=== PATIENT | female | born 1990 | race African-American/Black ===

== ENCOUNTER 2016-06-16 10:50 | Inpatient (IN) | payer MEDICAID ==
[~2016-06-16] VITALS: Ht 152.4 cm; Wt 58.1 kg
[~2016-06-16 10:50] MED LIST: AMOXICILLIN500 MG ORAL; BACTRIM-DS1 EA ORAL; IBUPROFEN600 MG ORAL; KEFLEX500 MG ORAL; NKM; NORCO 5-325 TA1 EACH ORAL; VALIUM5 MG ORAL
[2016-06-16] MEDS ORDERED: Acetaminophen 500mg (ES) tab ORAL ONE (11:15)
[2016-06-16 12:32] LABS: BASOPHILS % (AUTO) 0.3 % (0.0-2.0); EOSINOPHILS % (AUTO) 0.2 % (0.0-3.0); LYMPHOCYTES % (AUTO) 15.9 % (20.0-45.0); MEAN CORPUSCULAR HEMOGLOBIN 26.9 PG (27.0-31.0); MEAN CORPUSCULAR HGB CONC 31.4 G/DL (32.0-36.0); MEAN CORPUSCULAR VOLUME 86 FL (80-99); MONOCYTES % (AUTO) 12.2 % (1.0-10.0); NEUTROPHILS % (AUTO) 71.5 % (45.0-75.0); PLATELET COUNT 252 K/UL (150-450); RED BLOOD COUNT 4.61 M/UL (4.20-5.40); RED CELL DISTRIBUTION WIDTH 11.3 % (11.6-14.8); WHITE BLOOD COUNT 7.9 K/UL (4.8-10.8)
[2016-06-16 12:35] LABS: ALANINE AMINOTRANSFERASE 7 U/L (3-33); ALBUMIN/GLOBULIN RATIO 0.9 (1.0-2.7); ANION GAP 16 (5-15); ASPARTATE AMINO TRANSFERASE 18 U/L (5-40); CALCIUM 9.4 mg/dL (8.6-10.2); CARBON DIOXIDE 25 mEQ/L (20-30); CHLORIDE 95 mEQ/L (98-107); CREATININE 0.9 mg/dL (0.5-0.9); GLOMERULAR FILTRATION RATE > 60 mL/min (>60); HEMOLYSIS 7; POTASSIUM 4.1 mEQ/L (3.4-4.9); SODIUM 136 mEQ/L (135-145); TOTAL PROTEIN 8.3 g/dL (6.6-8.7)
[2016-06-16 13:20] VITALS: BP 109/70
[2016-06-16] MEDS ORDERED: Clindamycin 900mg 50 ML IVPB ONE (15:00)
[2016-06-16 15:42] VITALS: BP 112/74
--- NOTE | 2016-06-16 15:58 | Emergency Room Report ---
History of Present Illness General Chief Complaint: Flu Like Symptoms Source: Patient Present Illness HPI This patient states that for the past few days she has had a sore throat that has become worse on the left side. She states that she also has left-sided neck pain. She states over the past day her left ear has also begun hurting. She also is fatigued and has generalized bodyaches. She denies nausea or vomiting. She denies chest pain or shortness of breath. She denies cough. She has no other complaints. Allergies: Coded Allergies: No Known Allergies (Verified , 09/08/11) Patient History Past Medical History: none Past Surgical History: none Social History: Denies: alcohol use, drug use, smoking Last Menstrual Period: 05/24/16 Now: No : 0 Para: 0 Reviewed Nursing Documentation: PMH: Agreed, PSxH: Agreed Nursing Documentation-PMH Past Medical History: No Stated History Review of Systems All Other Systems: negative except mentioned in HPI Physical Exam Vital Signs Date Time Temp Pulse Resp B/P Pulse Ox O2 Delivery O2 Flow Rate FiO2 06/16/16 10:55 99.1 82 20 114/79 100 Room Air Sp02 EP Interpretation: reviewed, normal General Appearance: no apparent distress, alert, GCS 15, non-toxic Head: normocephalic, atraumatic Eyes: bilateral eye PERRL, bilateral eye normal inspection ENT: hearing grossly normal, no angioedema, normal voice, uvula midline, tonsillar swelling - L. tonsillar enlargement and erythema., other - +purulent fluid behind L. TM Neck: full range of motion, no meningismus, supple/symm/no masses Respiratory: chest non-tender, lungs clear, normal breath sounds, speaking full sentences Cardiovascular #1: regular rate, rhythm, no edema Gastrointestinal: normal bowel sounds, non tender, soft, non-distended, no guarding, no rebound Rectal: deferred Musculoskeletal: back normal, gait/station normal, normal range of motion, non- tender Neurologic: alert, oriented x3, responsive, motor strength/tone normal, sensory intact, speech normal Psychiatric: judgement/insight normal, memory normal, mood/affect normal, no suicidal/homicidal ideation Skin: normal color, no rash, warm/dry, well hydrated Medical Decision Making Diagnostic Impression: Primary Impression: Cellulitis of tonsil ER Course Patient has swelling and cellulitis of the left tonsil. Because of the significant swelling in the left sided neck pain, I felt I should obtain a CT of the peritonsillar area and neck to rule out abscess. CT showed swelling of the tonsil and some peritonsillar phlegmon formation. No discrete abscess. However, in this is concerning that this could progress quickly into the peritonsillar abscess. Therefore, I feel I should admit this patient for IV antibiotics. Patient was also given clindamycin IV here in the emergency department. She will be admitted for further evaluation and treatment. Labs Test 06/16/16 11:43 06/16/16 11:54 Urine HCG, Qualitative Negative White Blood Count 7.9 K/UL (4.8-10.8) Red Blood Count 4.61 M/UL (4.20-5.40) Hemoglobin 12.4 G/DL (12.0-16.0) Hematocrit 39.4 % (37.0-47.0) Mean Corpuscular Volume 86 FL (80-99) Mean Corpuscular Hemoglobin 26.9 PG (27.0-31.0) Mean Corpuscular Hemoglobin Concent 31.4 G/DL (32.0-36.0) Red Cell Distribution Width 11.3 % (11.6-14.8) Platelet Count 252 K/UL (150-450) Mean Platelet Volume 8.0 FL (6.5-10.1) Neutrophils (%) (Auto) 71.5 % (45.0-75.0) Lymphocytes (%) (Auto) 15.9 % (20.0-45.0) Monocytes (%) (Auto) 12.2 % (1.0-10.0) Eosinophils (%) (Auto) 0.2 % (0.0-3.0) Basophils (%) (Auto) 0.3 % (0.0-2.0) Sodium Level 136 mEQ/L (135-145) Potassium Level 4.1 mEQ/L (3.4-4.9) Chloride Level 95 mEQ/L (98-107) Carbon Dioxide Level 25 mEQ/L (20-30) Anion Gap 16 (5-15) Blood Urea Nitrogen 9 mg/dL (7-23) Creatinine 0.9 mg/dL (0.5-0.9) Estimat Glomerular Filtration Rate > 60 mL/min (>60) Glucose Level 96 mg/dL (74-106) Calcium Level 9.4 mg/dL (8.6-10.2) Total Bilirubin 0.3 mg/dL (0.0-1.2) Aspartate Amino Transf (AST/SGOT) 18 U/L (5-40) Alanine Aminotransferase (ALT/SGPT) 7 U/L (3-33) Alkaline Phosphatase 55 U/L (35-104) Total Protein 8.3 g/dL (6.6-8.7) Albumin 4.1 g/dL (3.5-5.2) Globulin 4.2 g/dL Albumin/Globulin Ratio 0.9 (1.0-2.7) Last Vital Signs Date Time Temp Pulse Resp B/P Pulse Ox O2 Delivery O2 Flow Rate FiO2 06/16/16 15:42 97.8 68 17 112/74 100 Room Air Disposition: ADMITTED INPATIENT Condition: Serious Referrals: NOT CHOSEN LINH/,REFERRING (PCP) AMRITA KILLIAN D.O. Jun 16, 2016 15:58
[2016-06-16 18:17] VITALS: BP 116/71
[2016-06-16 20:03] VITALS: BP 118/69
[2016-06-16] MEDS ORDERED: DuoNeb 0.5-3(2.5)mg/3ml neb HHN PRN (21:45)
[2016-06-16] MEDS ORDERED: Nitroglycerin Subl 0.4mg tab (Bottle Of 25) SL PRN (21:45)
[2016-06-16] MEDS ORDERED: Miralax 17gm pkt ORAL PRN (21:45)
--- NOTE | 2016-06-16 22:17 | Infectious Diseases Prog Note ---
Assessment/Plan Problems: (1) Tonsillar abscess Assessment & Plan: will send screening for strep A , continue vancomycin and cefepime, add flagyl to cover anaerobic bacteria, recommend ENT consult (2) Acute bacterial tonsillitis Assessment & Plan: suspect streptococcus related, will screen for strep A, continue current antibiotics, and add flagyl (3) Sepsis Assessment & Plan: due to the above, blood culture was sent, continue current antibiotics Subjective Allergies: Coded Allergies: No Known Allergies (Verified , 09/08/11) Objective Vital Signs Last 24 Hour Vital Signs Date Time Temp Pulse Resp B/P Pulse Ox O2 Delivery O2 Flow Rate FiO2 06/16/16 20:03 97.7 61 18 118/69 99 Room Air 06/16/16 19:22 97.7 70 19 116/71 100 Room Air 06/16/16 18:17 97.7 70 19 116/71 100 Room Air 06/16/16 15:42 97.8 68 17 112/74 100 Room Air 06/16/16 13:20 97.9 66 18 109/70 100 Room Air 06/16/16 12:47 97.9 06/16/16 11:40 14 Room Air 06/16/16 10:55 99.1 82 20 114/79 100 Room Air Height (Feet): 5 Height (Inches): 0.00 Weight (Pounds): 128 Microbiology Date/Time Source Procedure Growth Status 06/16/16 11:50 Nasal Nares Influenza Types A,B Antigen (QIAN) - Final Complete Laboratory Tests Test 06/16/16 11:43 06/16/16 11:54 Urine HCG, Qualitative Negative White Blood Count 7.9 K/UL (4.8-10.8) Red Blood Count 4.61 M/UL (4.20-5.40) Hemoglobin 12.4 G/DL (12.0-16.0) Hematocrit 39.4 % (37.0-47.0) Mean Corpuscular Volume 86 FL (80-99) Mean Corpuscular Hemoglobin 26.9 PG (27.0-31.0) L Mean Corpuscular Hemoglobin Concent 31.4 G/DL (32.0-36.0) L Red Cell Distribution Width 11.3 % (11.6-14.8) L Platelet Count 252 K/UL (150-450) Mean Platelet Volume 8.0 FL (6.5-10.1) Neutrophils (%) (Auto) 71.5 % (45.0-75.0) Lymphocytes (%) (Auto) 15.9 % (20.0-45.0) L Monocytes (%) (Auto) 12.2 % (1.0-10.0) H Eosinophils (%) (Auto) 0.2 % (0.0-3.0) Basophils (%) (Auto) 0.3 % (0.0-2.0) Sodium Level 136 mEQ/L (135-145) Potassium Level 4.1 mEQ/L (3.4-4.9) Chloride Level 95 mEQ/L (98-107) L Carbon Dioxide Level 25 mEQ/L (20-30) Anion Gap 16 (5-15) H Blood Urea Nitrogen 9 mg/dL (7-23) Creatinine 0.9 mg/dL (0.5-0.9) Estimat Glomerular Filtration Rate > 60 mL/min (>60) Glucose Level 96 mg/dL (74-106) Calcium Level 9.4 mg/dL (8.6-10.2) Total Bilirubin 0.3 mg/dL (0.0-1.2) Aspartate Amino Transf (AST/SGOT) 18 U/L (5-40) Alanine Aminotransferase (ALT/SGPT) 7 U/L (3-33) Alkaline Phosphatase 55 U/L (35-104) Total Protein 8.3 g/dL (6.6-8.7) Albumin 4.1 g/dL (3.5-5.2) Globulin 4.2 g/dL Albumin/Globulin Ratio 0.9 (1.0-2.7) L Current Medications Medications (Trade) Dose Ordered Sig/Prakash Route PRN Reason Start Time Stop Time Status Last Admin Dose Admin Acetaminophen (Tylenol) 650 mg Q4H PRN ORAL fever 06/16/16 21:45 07/16/16 21:44 UNV Albuterol/ Ipratropium 3 ml 3 ml EVERY 4 HOURS PRN HHN Shortness of Breath 06/16/16 21:45 06/21/16 21:44 UNV Cefepime HCl 2 gm/ Dextrose 110 ml @ 220 mls/hr Q12HR@1100,2300 IV 06/16/16 23:00 06/23/16 22:59 Heparin Sodium (Porcine) (Heparin 5000 units/ml) 5,000 units EVERY 12 HOURS SUBQ 06/17/16 23:00 07/17/16 22:59 Morphine Sulfate (Morphine Sulfate) 2 mg EVERY 4 HOURS PRN IVP Moderate Pain (Pain Scale 4-6) 06/16/16 21:45 06/23/16 21:44 UNV Nitroglycerin (Ntg) 0.4 mg Every 5 Minutes PRN SL Prn Chest Pain 06/16/16 21:45 07/16/16 21:44 UNV Ondansetron HCl (Zofran) 4 mg Q6H PRN IVP Nausea & Vomiting 06/16/16 21:45 07/16/16 21:44 UNV Polyethylene Glycol (Miralax) 17 gm DAILYPRN PRN ORAL Constipation 06/16/16 21:45 07/16/16 21:44 UNV Temazepam (Restoril) 15 mg HSPRN PRN ORAL Insomnia 06/16/16 21:45 06/23/16 21:44 UNV Vancomycin HCl/ Dextrose (Vancomycin/D5W) 275 ml @ 183.3 mls/ hr Q24H IV 06/17/16 00:30 06/22/16 00:29 UNV Kyree Otto M.D. Jun 16, 2016 22:17
[2016-06-16] MEDS: Morphine Sulfate 2mg/ml Inj IVP PRN (22:36)
[2016-06-16] MEDS: Cefepime HCl 2 GM in D5W 110 ML IV SCH (22:37)
[2016-06-17] VITALS: BP 105/57
[2016-06-17] MEDS: metroNIDAZOLE 500mg 100 ML IVPB SCH ×4 (00:51→21:31)
[2016-06-17] MEDS: Vancomycin 750 MG in D5W 275 ML IVPB SCH ×2 (01:40→12:38)
[2016-06-17] MEDS: Morphine Sulfate 2mg/ml Inj IVP PRN ×4 (02:10→21:32)
[2016-06-17 04:00] VITALS: BP 97/47
[2016-06-17 07:32] LABS: BASOPHILS % (AUTO) 0.2 % (0.0-2.0); EOSINOPHILS % (AUTO) 0.4 % (0.0-3.0); LYMPHOCYTES % (AUTO) 16.3 % (20.0-45.0); MEAN CORPUSCULAR HEMOGLOBIN 28.7 PG (27.0-31.0); MEAN CORPUSCULAR HGB CONC 33.4 G/DL (32.0-36.0); MEAN CORPUSCULAR VOLUME 86 FL (80-99); MONOCYTES % (AUTO) 9.6 % (1.0-10.0); NEUTROPHILS % (AUTO) 73.5 % (45.0-75.0); PLATELET COUNT 229 K/UL (150-450); RED BLOOD COUNT 4.19 M/UL (4.20-5.40); RED CELL DISTRIBUTION WIDTH 11.3 % (11.6-14.8); WHITE BLOOD COUNT 6.9 K/UL (4.8-10.8)
[2016-06-17 07:47] LABS: ALANINE AMINOTRANSFERASE 6 U/L (3-33); ANION GAP 15 (5-15); ASPARTATE AMINO TRANSFERASE 14 U/L (5-40); CALCIUM 8.9 mg/dL (8.6-10.2); CARBON DIOXIDE 24 mEQ/L (20-30); CHLORIDE 99 mEQ/L (98-107); CREATININE 0.9 mg/dL (0.5-0.9); GLOMERULAR FILTRATION RATE > 60 mL/min (>60); HEMOLYSIS 3; POTASSIUM 3.9 mEQ/L (3.4-4.9); SODIUM 138 mEQ/L (135-145); TOTAL PROTEIN 7.4 g/dL (6.6-8.7)
[2016-06-17 07:50] VITALS: BP 103/57
--- NOTE | 2016-06-17 08:47 | Diagnostic Imaging Report ---
Indication: Left-sided ear pain, painful swallowing Technique: IV administration nonionic contrast. Spiral acquisitions obtained through the neck. Multiplanar reconstructions were generated. Total dose length product 543 mGycm. CTDIvol(s) 8, 32, 17 mGy. Radiation dose was minimized using automated exposure control Comparison: None Findings: There is enlargement of the left tonsil. There is some subtle low-attenuation in the inferior lateral left tonsillar or peritonsillar region which is irregular, measures approximately 13 x 9 mm, does not demonstrate peripheral enhancement. There is a 6 mm area of low attenuation in the left side of the adenoids at the junction with the upper tonsil. This is subtle, ill-defined, and does not represent peripheral enhancement Otherwise, no definite discrete collections with peripheral enhancement are demonstrated to definitely suggest abscess. There is also some swelling of the adenoids and equivocal slight swelling of the right tonsil. No significant prevertebral soft tissue swelling is demonstrated. There is cervical adenopathy, with bilateral jugulodigastric nodes each measuring approximately 2.8 cm long axis dimension. Enlarged posterior triangle nodes measure up to 2.2 cm on the right and 2.5 cm on the left. There are prominent but smaller lymph nodes are also demonstrated bilaterally The isthmus and deep lobe of both parotid glands demonstrates subtle slight low-attenuation, each area measuring approximately 12 mm diameter. Suspect that this is on the basis of been hardening artifact from the adjacent bones and opacified vascular structures. The included maxillary sinuses are clear. The thyroid is unremarkable. The bones are unremarkable. The lung apices are clear. The vascular structures are unremarkable. The visualized posterior fossa structures are unremarkable. Impression: There is left tonsillar, adenoidal, and to a lesser extent right tonsillar soft tissue swelling, presumably a bases of infection/inflammation. Irregular subtle area of low attenuation in the inferior periphery of the left tonsillar region is ill-defined, and does not demonstrate peripheral enhancement. Suspect this represents an area of phlegmon, but early abscess formation not completely excludable. 6 mm low attenuation in the left side of the adenoids at the level of the junction with the tonsils. No rim enhancement. This could be chest on the basis of beam hardening artifact. If real, most likely an area of phlegmon but early abscess formation likewise not completely excludable. Bilateral cervical lymphadenopathy. Given evidence of tonsillar inflammation, most likely represents reactive lymphadenopathy. The CT scanner at [facility] is accredited by the [employer] and the scans are performed using protocols designed to limit radiation exposure to as low as reasonably achievable to attain images of sufficient resolution adequate for diagnostic evaluation.
[2016-06-17 11:24] VITALS: BP 121/75
[2016-06-17] MEDS: Cefepime HCl 2 GM in D5W 110 ML IV SCH ×2 (11:52→22:37)
--- NOTE | 2016-06-17 12:28 | History and Physical Report ---
DATE OF ADMISSION: 06/16/2016 HISTORY OF PRESENT ILLNESS: The patient is admitted for tonsillar and peritonsillar cellulitis, rule out abscess noted for IV antibiotics. The patient complained of throat pain for the couple of days and left ear pain for couple of days as well, body aches, arthralgia, and it was hard to swallow foods and those are the symptoms that she came in for. The patient denies fever or chills. Denies headache. Denies dizziness. PAST MEDICAL HISTORY: None. PAST SURGICAL HISTORY: None. MEDICATIONS: None. ALLERGIES: None. SOCIAL HISTORY: Denies history of smoking, alcohol, or illicit drugs. FAMILY HISTORY: Noncontributory. REVIEW OF SYSTEMS: HEENT: Denies headaches. Respiratory: Denies shortness of breath. Denies cough. Cardiovascular: Denies chest pain. Gastrointestinal: Denies nausea, vomiting, or diarrhea. She does have throat pain. She does have swallowing problem and left ear pain. Central Nervous System: No change in vision. . PHYSICAL EXAMINATION: VITAL SIGNS: Temperature is 97.7 degrees, pulse of 70, blood pressure 116/79. HEENT: PERRLA. NECK: Supple. No lymphadenopathy. CHEST: Clear to auscultation. There might be an abscess, it is hard to visualize along the tonsillar area. We will refer this to ENT. CARDIOVASCULAR: Regular rate and rhythm. No murmurs, rubs, or gallops. GASTROINTESTINAL: Soft, nontender, and nondistended. No organomegaly. EXTREMITIES: No edema. . NEUROLOGIC: Reflexes are equal on both sides. Moves all four extremities. LABORATORY DATA: WBC of 7.9, hemoglobin 12.9, and platelets 252,000. Sodium 133, potassium, 4.1, BUN of 9, creatinine 0.9, glucose of 96. ASSESSMENT AND PLAN: 1. Possible peritonsillar cellulitis, rule out abscess. 2. Infectious disease Dr. Adams, Dr. Otto, Dr. Dr. Garcia, and Dr. Huang have been consulted for the above-mentioned diagnoses and treatment. The patient also was complained of shortness of breath. Diandra Samson M.D. DR: ERI JOB#: [id number] CC:
--- NOTE | 2016-06-17 12:57 | Diagnostic Imaging Report ---
Indication: DYSPNEA Technique: Single portable AP view of the chest. Findings: Comparison: None. The bones and extra pulmonary soft tissues, cardiomediastinal silhouette, pulmonary vasculature and parenchyma, and pleural surfaces are unremarkable. IMPRESSION: Negative portable AP chest.
--- NOTE | 2016-06-17 15:48 | Consultation ---
History of Present Illness General Date patient seen: Jun 17, 2016 Chief Complaint: Flu Like Symptoms Reason for Consultation: inpatient management Present Illness HPI 25 year old female presented to ER with CC of sore throat that has become worse on the left side. She states that she also has left-sided neck pain. She states over the past day her left ear has also begun hurting. she had a CT of her neck showing peritonsilar abscess. Allergies: Coded Allergies: No Known Allergies (Verified , 09/08/11) Medication History Scheduled No Known Medications* (NKM - No Known Medications*), 0 ., (Reported) Discontinued Medications Amoxicillin* (Amoxil*), 500 MG ORAL THREE TIMES A DAY Discontinued Reason: Therapy completed Cephalexin* (Keflex*), 500 MG ORAL EVERY 6 HOURS Discontinued Reason: Therapy completed Diazepam* (Valium*), 5 MG ORAL TID PRN for spasm Discontinued Reason: Therapy completed Hydrocodone Bit/Acetaminophen 5-325* ([employer] 5-325*), 1 TAB ORAL Q4H PRN for For Pain Discontinued Reason: Therapy completed Ibuprofen* (Motrin*), 600 MG ORAL Q8H PRN for For Pain Discontinued Reason: Therapy completed Trimethoprim/Sulfamethoxazole (Bactrim Ds Tablet), 1 TAB ORAL TWICE A DAY Discontinued Reason: Therapy completed Patient History Healthcare decision maker patient Resuscitation status Advanced Directive on File Review of Systems Constitutional: Reports: fever, malaise Physical Exam Lines, tubes and drains: peripheral HEENT: atraumatic Neck: tenderness, tender lateral Respiratory/Chest: chest wall non-tender, lungs clear Cardiovascular/Chest: normal peripheral pulses, regular rhythm Last 24 Hour Vital Signs Date Time Temp Pulse Resp B/P Pulse Ox O2 Delivery O2 Flow Rate FiO2 06/17/16 11:24 97.9 76 19 121/75 98 Room Air 06/17/16 07:50 97.0 65 19 103/57 100 Room Air 06/17/16 04:00 98.1 58 18 97/47 100 Room Air 06/17/16 00:00 98.1 65 18 105/57 98 Room Air 06/16/16 20:03 97.7 61 18 118/69 99 Room Air 06/16/16 19:22 97.7 70 19 116/71 100 Room Air 06/16/16 18:17 97.7 70 19 116/71 100 Room Air Intake and Output 06/16/16 06/17/16 19:00 07:00 Intake Total 1100 ml 466.6 ml Balance 1100 ml 466.6 ml Intake Oral 100 ml IV Total 1000 ml 466.6 ml # Voids 1 4 Laboratory Tests Test 06/17/16 06:20 White Blood Count 6.9 K/UL (4.8-10.8) Red Blood Count 4.19 M/UL (4.20-5.40) L Hemoglobin 12.0 G/DL (12.0-16.0) Hematocrit 35.9 % (37.0-47.0) L Mean Corpuscular Volume 86 FL (80-99) Mean Corpuscular Hemoglobin 28.7 PG (27.0-31.0) Mean Corpuscular Hemoglobin Concent 33.4 G/DL (32.0-36.0) Red Cell Distribution Width 11.3 % (11.6-14.8) L Platelet Count 229 K/UL (150-450) Mean Platelet Volume 8.0 FL (6.5-10.1) Neutrophils (%) (Auto) 73.5 % (45.0-75.0) Lymphocytes (%) (Auto) 16.3 % (20.0-45.0) L Monocytes (%) (Auto) 9.6 % (1.0-10.0) Eosinophils (%) (Auto) 0.4 % (0.0-3.0) Basophils (%) (Auto) 0.2 % (0.0-2.0) Sodium Level 138 mEQ/L (135-145) Potassium Level 3.9 mEQ/L (3.4-4.9) Chloride Level 99 mEQ/L (98-107) Carbon Dioxide Level 24 mEQ/L (20-30) Anion Gap 15 (5-15) Blood Urea Nitrogen 7 mg/dL (7-23) Creatinine 0.9 mg/dL (0.5-0.9) Estimat Glomerular Filtration Rate > 60 mL/min (>60) Glucose Level 79 mg/dL (74-106) Calcium Level 8.9 mg/dL (8.6-10.2) Total Bilirubin 0.2 mg/dL (0.0-1.2) Aspartate Amino Transf (AST/SGOT) 14 U/L (5-40) Alanine Aminotransferase (ALT/SGPT) 6 U/L (3-33) Alkaline Phosphatase 49 U/L (35-104) Total Protein 7.4 g/dL (6.6-8.7) Albumin 3.8 g/dL (3.5-5.2) Globulin 3.6 g/dL Albumin/Globulin Ratio 1.0 (1.0-2.7) Height (Feet): 5 Height (Inches): 0.00 Weight (Pounds): 128 Medications Current Medications Medications (Trade) Dose Ordered Sig/Prakash Route PRN Reason Start Time Stop Time Status Last Admin Dose Admin Acetaminophen (Tylenol) 650 mg Q4H PRN ORAL fever 06/16/16 21:45 07/16/16 21:44 Albuterol/ Ipratropium 3 ml 3 ml Q4H PRN HHN Shortness of Breath 06/16/16 21:45 06/21/16 21:44 Cefepime HCl 2 gm/ Dextrose 110 ml @ 220 mls/hr Q12HR@1100,2300 IV 06/16/16 23:00 06/23/16 22:59 06/17/16 11:52 Heparin Sodium (Porcine) (Heparin 5000 units/ml) 5,000 units EVERY 12 HOURS SUBQ 06/17/16 23:00 07/17/16 22:59 Metronidazole (Flagyl) 100 ml @ 100 mls/hr Q8HR IVPB 06/16/16 23:00 06/23/16 22:59 06/17/16 14:05 Morphine Sulfate (Morphine Sulfate) 2 mg Q4H PRN IVP Moderate Pain (Pain Scale 4-6) 06/16/16 21:45 06/23/16 21:44 06/17/16 09:01 Nitroglycerin (Ntg) 0.4 mg Q5M PRN SL Prn Chest Pain 06/16/16 21:45 07/16/16 21:44 Ondansetron HCl (Zofran) 4 mg Q6H PRN IVP Nausea & Vomiting 06/16/16 21:45 07/16/16 21:44 Polyethylene Glycol (Miralax) 17 gm DAILYPRN PRN ORAL Constipation 06/16/16 21:45 07/16/16 21:44 Temazepam (Restoril) 15 mg HSPRN PRN ORAL Insomnia 06/16/16 21:45 06/23/16 21:44 Vancomycin HCl 1 ea 1 ea DAILY PRN MISC PRN RX PROTOCOL 06/16/16 22:15 07/16/16 22:14 Vancomycin HCl/ Dextrose (Vancomycin/D5W) 275 ml @ 183.3 mls/ hr Q12H IVPB 06/17/16 00:00 06/22/16 00:00 06/17/16 12:38 Assessment/Plan Problem List: (1) Tonsillar abscess ICD Codes: J36 - Peritonsillar abscess SNOMED: 77798571 (2) Sepsis ICD Codes: A41.9 - Sepsis, unspecified organism SNOMED: 07342578 Assessment/Plan iv antibiotics check cultures check wbc check electrolytes dc home when ok with ID. ANNABELLE [place] Jun 17, 2016 15:48
[2016-06-17 16:00] VITALS: BP 97/62
--- NOTE | 2016-06-17 18:11 | Infectious Diseases Prog Note ---
Assessment/Plan Problems: (1) Tonsillar abscess Assessment & Plan: continue vancomycin, cefepime, and flagyl to cover anaerobic bacteria, recommend ENT consult (2) Acute bacterial tonsillitis Assessment & Plan: suspect streptococcus related, will screen for strep A, continue current antibiotics, and add flagyl (3) Sepsis Assessment & Plan: due to the above, blood culture was sent, continue current antibiotics Subjective Constitutional: Reports: anorexia HEENT: Reports: other - left neck and throat pain with swelling. Allergies: Coded Allergies: No Known Allergies (Verified , 09/08/11) All Systems: reviewed and negative except above Objective Vital Signs Last 24 Hour Vital Signs Date Time Temp Pulse Resp B/P Pulse Ox O2 Delivery O2 Flow Rate FiO2 06/17/16 11:24 97.9 76 19 121/75 98 Room Air 06/17/16 07:50 97.0 65 19 103/57 100 Room Air 06/17/16 04:00 98.1 58 18 97/47 100 Room Air 06/17/16 00:00 98.1 65 18 105/57 98 Room Air 06/16/16 20:03 97.7 61 18 118/69 99 Room Air 06/16/16 19:22 97.7 70 19 116/71 100 Room Air 06/16/16 18:17 97.7 70 19 116/71 100 Room Air Height (Feet): 5 Height (Inches): 0.00 Weight (Pounds): 128 General Appearance: WD/WN, no acute distress HEENT: normocephalic, atraumatic, anicteric, mucous membranes moist, tonsils swollen Respiratory/Chest: chest wall non-tender, lungs clear, normal breath sounds, no respiratory distress, no accessory muscle use Cardiovascular: normal peripheral pulses, normal rate, regular rhythm, no gallop/murmur, no JVD Abdomen: normal bowel sounds, soft, non tender, no organomegaly, non distended , no mass Extremities: no cyanosis, no clubbing Skin: no rash, no lesions, no ulcers Microbiology Date/Time Source Procedure Growth Status 06/16/16 11:50 Nasal Nares Influenza Types A,B Antigen (QIAN) - Final Complete Laboratory Tests Test 06/17/16 06:20 White Blood Count 6.9 K/UL (4.8-10.8) Red Blood Count 4.19 M/UL (4.20-5.40) L Hemoglobin 12.0 G/DL (12.0-16.0) Hematocrit 35.9 % (37.0-47.0) L Mean Corpuscular Volume 86 FL (80-99) Mean Corpuscular Hemoglobin 28.7 PG (27.0-31.0) Mean Corpuscular Hemoglobin Concent 33.4 G/DL (32.0-36.0) Red Cell Distribution Width 11.3 % (11.6-14.8) L Platelet Count 229 K/UL (150-450) Mean Platelet Volume 8.0 FL (6.5-10.1) Neutrophils (%) (Auto) 73.5 % (45.0-75.0) Lymphocytes (%) (Auto) 16.3 % (20.0-45.0) L Monocytes (%) (Auto) 9.6 % (1.0-10.0) Eosinophils (%) (Auto) 0.4 % (0.0-3.0) Basophils (%) (Auto) 0.2 % (0.0-2.0) Sodium Level 138 mEQ/L (135-145) Potassium Level 3.9 mEQ/L (3.4-4.9) Chloride Level 99 mEQ/L (98-107) Carbon Dioxide Level 24 mEQ/L (20-30) Anion Gap 15 (5-15) Blood Urea Nitrogen 7 mg/dL (7-23) Creatinine 0.9 mg/dL (0.5-0.9) Estimat Glomerular Filtration Rate > 60 mL/min (>60) Glucose Level 79 mg/dL (74-106) Calcium Level 8.9 mg/dL (8.6-10.2) Total Bilirubin 0.2 mg/dL (0.0-1.2) Aspartate Amino Transf (AST/SGOT) 14 U/L (5-40) Alanine Aminotransferase (ALT/SGPT) 6 U/L (3-33) Alkaline Phosphatase 49 U/L (35-104) Total Protein 7.4 g/dL (6.6-8.7) Albumin 3.8 g/dL (3.5-5.2) Globulin 3.6 g/dL Albumin/Globulin Ratio 1.0 (1.0-2.7) Current Medications Medications (Trade) Dose Ordered Sig/Prakash Route PRN Reason Start Time Stop Time Status Last Admin Dose Admin Acetaminophen (Tylenol) 650 mg Q4H PRN ORAL fever 06/16/16 21:45 07/16/16 21:44 Albuterol/ Ipratropium 3 ml 3 ml Q4H PRN HHN Shortness of Breath 06/16/16 21:45 06/21/16 21:44 Cefepime HCl 2 gm/ Dextrose 110 ml @ 220 mls/hr Q12HR@1100,2300 IV 06/16/16 23:00 06/23/16 22:59 06/17/16 11:52 Heparin Sodium (Porcine) (Heparin 5000 units/ml) 5,000 units EVERY 12 HOURS SUBQ 06/17/16 23:00 07/17/16 22:59 Metronidazole (Flagyl) 100 ml @ 100 mls/hr Q8HR IVPB 06/16/16 23:00 06/23/16 22:59 06/17/16 14:05 Morphine Sulfate (Morphine Sulfate) 2 mg Q4H PRN IVP Moderate Pain (Pain Scale 4-6) 06/16/16 21:45 06/23/16 21:44 06/17/16 15:52 Nitroglycerin (Ntg) 0.4 mg Q5M PRN SL Prn Chest Pain 06/16/16 21:45 07/16/16 21:44 Ondansetron HCl (Zofran) 4 mg Q6H PRN IVP Nausea & Vomiting 06/16/16 21:45 07/16/16 21:44 Polyethylene Glycol (Miralax) 17 gm DAILYPRN PRN ORAL Constipation 06/16/16 21:45 07/16/16 21:44 Temazepam (Restoril) 15 mg HSPRN PRN ORAL Insomnia 06/16/16 21:45 06/23/16 21:44 Vancomycin HCl 1 ea 1 ea DAILY PRN MISC PRN RX PROTOCOL 06/16/16 22:15 07/16/16 22:14 Vancomycin HCl/ Dextrose (Vancomycin/D5W) 275 ml @ 183.3 mls/ hr Q12H IVPB 06/17/16 00:00 06/22/16 00:00 06/17/16 12:38 Kyree Otto M.D. Jun 17, 2016 18:11
[2016-06-17 20:00] VITALS: BP 100/61
--- NOTE | 2016-06-17 21:28 | Consultation ---
DATE OF CONSULTATION: 06/17/2016 INFECTIOUS DISEASE CONSULTATION CONSULTING PHYSICIAN: Kyree Otto M.D. REFERRING PHYSICIAN: Mazin Betts D.O. REASON FOR CONSULTATION: Left tonsillitis with peritonsillar abscess, recommendation for antibiotic therapy. HISTORY OF PRESENT ILLNESS: The patient is a 25-year-old female, with no significant past medical history, presented to the hospital with worsening left-sided throat pain started on Wednesday. The patient did not have any previous preceding symptoms of upper respiratory infection or flu-like syndrome at all, just started with left sore throat, progressed to the point that she was unable to eat. She felt tenderness on the left side of her neck with lump. She had low-grade fever, but no chills. She also had generalized body ache and fatigue. Denied any recent travel or sick contact. The patient denied any headache or blurry vision. In the emergency room, she had a neck CT scan, which was positive for tonsillar enlargement on the left and peritonsillar phlegmon enhancement, suspicious for early abscess formation. So, she was started on antibiotics and I was consulted by the primary provider for antibiotic treatment and further management. REVIEW OF SYSTEMS: Fourteen points of system review were all negative apart from the one I mentioned above in my history and physical PAST MEDICAL HISTORY: Negative. PAST SURGICAL HISTORY: Negative. ALLERGIES: She has no known drug allergies. MEDICATIONS: The patient was given vancomycin and cefepime in the emergency room. For the rest of her medications, please refer to MAR. FAMILY HISTORY: Negative. SOCIAL HISTORY: She works in an office answering phone. Denies using any drugs, tobacco, or alcohol. LABORATORY DATA: White count 7.9, hemoglobin 12.4, hematocrit 39.4, and platelet count 252,000. BUN of 9 and creatinine of 0.9. Urine HCG negative. MICROBIOLOGY: Influenza screening was negative. IMAGING: Neck CT scan showed left tonsillar, adenoidal, and right tonsillar soft tissue swelling. Irregular subtle area of low attenuation in the inferior periphery of the left tonsillar region is ill-defined, does not demonstrate peripheral enhancement, suspect represents the area of phlegmon, but clearly abscess formation not completely excluded. A 6 mm of lower attenuation on the left side of the adenoids at the level of the junction with the tonsils, no rim enhancement, suspicious for phlegmon too. Chest x-ray showed negative portable AP chest. PHYSICAL EXAMINATION: VITAL SIGNS: Temperature 97.7, pulse 70, respirations 19, blood pressure 116/71, and saturation 100% on room air. GENERAL: A young female, up in bed, awake, alert, comfortable, speaking in full sentences, in no acute distress. HEENT: Normocephalic and atraumatic. Pupils are reactive to light equally. She had left tonsillar enlargement, congested, but no exudate, enlarged towards the midline. Right tonsil looks red, but not enlarged as much as the left tonsil. No oral thrush. NECK: Tender on the left side at the angle of the left lower jaw with lymphadenopathy. CARDIOVASCULAR: Regular rate and rhythm. No murmur or gallop. LUNGS: Clear bilaterally. No wheezing or rhonchi. ABDOMEN: Soft, nontender, and nondistended. Positive bowel sounds. No hepatosplenomegaly. No ascites. EXTREMITIES: No edema or cyanosis. ASSESSMENT AND PLAN: 1. Tonsillar abscess. We will send screening for streptococcus A. continue vancomycin and cefepime empirically for now. We will add Flagyl to cover anaerobes. Recommend ENT consult. 2. Acute bacterial tonsillitis, suspect streptococcus species related. We will screen for streptococcus A. Continue antibiotics. Add Flagyl for anaerobic coverage. 3. Sepsis due to the above. Blood culture was sent. Continue wide-spectrum antibiotic therapy pending culture results. Kyree Otto M.D. DR: BARRINGTON JOB#: [id number] CC:
[2016-06-17] MEDS: Heparin 5000 units/ml inj SUBQ SCH (22:37)
[2016-06-18] VITALS (7 sets, daily range): BP systolic 91–116; BP diastolic 53–70
[2016-06-18] MEDS: Vancomycin 750 MG in D5W 275 ML IVPB SCH (00:40)
[2016-06-18] MEDS: Morphine Sulfate 2mg/ml Inj IVP PRN ×3 (02:12→22:17)
[2016-06-18] MEDS: metroNIDAZOLE 500mg 100 ML IVPB SCH ×3 (05:40→21:52)
[2016-06-18] MEDS: Heparin 5000 units/ml inj SUBQ SCH ×2 (08:38→20:26)
--- NOTE | 2016-06-18 10:44 | General Progress Note ---
Subjective Allergies: Coded Allergies: No Known Allergies (Verified , 09/08/11) Subjective sore throat per dr hewitt pt just continue conservative treatment and abx for now afebrile Objective Last 24 Hour Vital Signs Date Time Temp Pulse Resp B/P Pulse Ox O2 Delivery O2 Flow Rate FiO2 06/18/16 10:28 98.1 59 18 101/69 Room Air 06/18/16 08:48 51 06/18/16 08:06 98.1 49 14 94/53 Room Air 06/18/16 03:29 97.5 53 18 91/57 100 Room Air 06/18/16 00:00 97.7 57 18 106/70 98 Room Air 06/17/16 20:00 98.6 69 16 100/61 100 Room Air 06/17/16 16:00 98.4 70 17 97/62 98 Room Air 06/17/16 11:24 97.9 76 19 121/75 98 Room Air Intake and Output 06/17/16 06/18/16 19:00 07:00 Intake Total 560 ml 180 ml Balance 560 ml 180 ml Intake Oral 560 ml 180 ml # Voids 3 3 Height (Feet): 5 Height (Inches): 0.00 Weight (Pounds): 128 Diandra Samson MD Jun 18, 2016 10:44
[2016-06-18] MEDS: Cefepime HCl 2 GM in D5W 110 ML IV SCH ×2 (11:51→23:01)
--- NOTE | 2016-06-18 12:47 | Consultation ---
DATE OF CONSULTATION: 06/18/2016 HEAD AND NECK SURGERY/ENT CONSULTATION CONSULTING PHYSICIAN: Haseeb Moore M.D. REQUESTING PHYSICIAN: Diandra Samson M.D. INDICATION FOR CONSULTATION: The patient was admitted via the emergency room with a left tonsillitis and possible peritonsillar abscess. On CT scan, she has no collection of fluid. I saw her today, she seems to be improving although still in discomfort on antibiotic steroids. PAST MEDICAL HISTORY: Unremarkable for heart, liver, lung, kidney, tobacco, alcohol, and chemical dependency issues. SOCIAL HISTORY: She is single, works in an office answering phones. LABORATORY AND DIAGNOSTIC DATA: Her white count has come down. She has a culture and sensitivity pending. Please also note that Dr. Kyree tOto saw the patient yesterday. PHYSICAL EXAMINATION: HEENT/NECK: Head, normocephalic. Eyes, pupils are equal, round, and reactive to light and EOMI. Tenderness on the right side, she says it is less than yesterday. She could open her mouth at least 25 mm interviewer distance. There is minimal redness on the left, but greater swelling on the right tonsil. Minimal swelling on the left. Her right tonsil is enlarged. ASSESSMENT: Possible peritonsillar abscess, definitely tonsillitis seems to be responding to medication at this point, I would not do an incision and drainage. PLAN: We will keep an eye on her and if it appears that she needs an I and D, we will proceed with that, the patient aware. Thank you very much for asking my opinion in the care and treatment of this patient Haseeb Moore M.D. DR: Ally JOB#: [id number] CC:
[2016-06-18] MEDS: Vancomycin 1gm/D5W 275ml IVPB SCH ×2 (13:30)
[2016-06-18] MEDS ORDERED: Tubing IV Secondary IV ONE (15:52)
--- NOTE | 2016-06-18 17:02 | Infectious Diseases Prog Note ---
Assessment/Plan Problems: (1) Tonsillar abscess Assessment & Plan: continue vancomycin, cefepime, and flagyl to cover anaerobic bacteria, was evaluated by ENT, no need for surgical drainage. (2) Acute bacterial tonsillitis Assessment & Plan: suspect streptococcus related, screening for strep A was not done , continue current antibiotics, monitor symptoms (3) Sepsis Assessment & Plan: due to the above, blood culture was sent, continue current antibiotics Subjective HEENT: Reports: other - sore throat, and left thee pain Allergies: Coded Allergies: No Known Allergies (Verified , 09/08/11) All Systems: reviewed and negative except above Objective Vital Signs Last 24 Hour Vital Signs Date Time Temp Pulse Resp B/P Pulse Ox O2 Delivery O2 Flow Rate FiO2 06/18/16 16:00 97.7 61 20 116/61 98 Room Air 06/18/16 11:55 98.1 51 14 106/61 99 Room Air 06/18/16 10:28 98.1 59 18 101/69 Room Air 06/18/16 08:48 51 06/18/16 08:06 98.1 49 14 94/53 Room Air 06/18/16 03:29 97.5 53 18 91/57 100 Room Air 06/18/16 00:00 97.7 57 18 106/70 98 Room Air 06/17/16 20:00 98.6 69 16 100/61 100 Room Air Height (Feet): 5 Height (Inches): 0.00 Weight (Pounds): 128 General Appearance: WD/WN, no acute distress HEENT: normocephalic, atraumatic, anicteric, mucous membranes moist, tonsils swollen Respiratory/Chest: chest wall non-tender, lungs clear, normal breath sounds, no respiratory distress, no accessory muscle use Cardiovascular: normal peripheral pulses, normal rate, regular rhythm, no gallop/murmur Abdomen: normal bowel sounds, soft, non tender, no organomegaly, non distended , no mass Extremities: no cyanosis, no clubbing Skin: no rash, no lesions, no ulcers Microbiology Date/Time Source Procedure Growth Status 06/16/16 22:50 Blood Blood Culture - Preliminary NO GROWTH AFTER 24 HOURS Resulted 06/16/16 22:45 Blood Blood Culture - Preliminary NO GROWTH AFTER 24 HOURS Resulted 06/18/16 07:50 Throat Received 06/16/16 11:50 Nasal Nares Influenza Types A,B Antigen (QIAN) - Final Complete Laboratory Tests Test 06/18/16 10:50 Vancomycin Level Trough 6.7 ug/mL (5.0-12.0) Current Medications Medications (Trade) Dose Ordered Sig/Prakash Route PRN Reason Start Time Stop Time Status Last Admin Dose Admin Acetaminophen (Tylenol) 650 mg Q4H PRN ORAL fever 06/16/16 21:45 07/16/16 21:44 Albuterol/ Ipratropium 3 ml 3 ml Q4H PRN HHN Shortness of Breath 06/16/16 21:45 06/21/16 21:44 Cefepime HCl/ Dextrose (Maxipime/D5W) 110 ml @ 220 mls/hr Q12HR@1100,2300 IV 06/16/16 23:00 06/23/16 22:59 06/18/16 11:51 Heparin Sodium (Porcine) (Heparin 5000 units/ml) 5,000 units EVERY 12 HOURS SUBQ 06/17/16 23:00 07/17/16 22:59 Metronidazole 100 ml @ 100 mls/hr Q8HR IVPB 06/16/16 23:00 06/23/16 22:59 06/18/16 15:43 Morphine Sulfate (Morphine Sulfate) 2 mg Q4H PRN IVP Moderate Pain (Pain Scale 4-6) 06/16/16 21:45 06/23/16 21:44 06/18/16 10:22 Nitroglycerin (Ntg) 0.4 mg Q5M PRN SL Prn Chest Pain 06/16/16 21:45 07/16/16 21:44 Ondansetron HCl (Zofran) 4 mg Q6H PRN IVP Nausea & Vomiting 06/16/16 21:45 07/16/16 21:44 Polyethylene Glycol (Miralax) 17 gm DAILYPRN PRN ORAL Constipation 06/16/16 21:45 07/16/16 21:44 Temazepam (Restoril) 15 mg HSPRN PRN ORAL Insomnia 06/16/16 21:45 06/23/16 21:44 Vancomycin HCl 1 ea 1 ea DAILY PRN MISC PRN RX PROTOCOL 06/16/16 22:15 07/16/16 22:14 Vancomycin HCl/ Dextrose (Vancomycin/D5W) 275 ml @ 183.708 mls/hr Q12HR@0100,1300 IVPB 06/18/16 13:00 06/23/16 12:59 06/18/16 13:30 Kyree Otto M.D. Jun 18, 2016 17:02
[2016-06-19] VITALS: BP 106/71
[2016-06-19] MEDS: Vancomycin 1gm/D5W 275ml IVPB SCH ×4 (00:21→13:51)
[2016-06-19 04:00] VITALS: BP 108/73
[2016-06-19] MEDS: metroNIDAZOLE 500mg 100 ML IVPB SCH ×3 (05:35→21:15)
[2016-06-19 08:00] VITALS: BP 107/78
[2016-06-19] MEDS: Heparin 5000 units/ml inj SUBQ SCH ×2 (08:45→20:14)
[2016-06-19 12:00] VITALS: BP 102/63
[2016-06-19] MEDS: Cefepime HCl 2 GM in D5W 110 ML IV SCH ×2 (12:02→22:24)
[2016-06-19] MEDS: Morphine Sulfate 2mg/ml Inj IVP PRN ×2 (17:10→22:32)
--- NOTE | 2016-06-19 17:11 | Infectious Diseases Prog Note ---
Assessment/Plan Problems: (1) Tonsillar abscess Assessment & Plan: improving on vancomycin, cefepime, and flagyl , was evaluated by ENT, no need for surgical drainage, will switch to oral regimen once her tonsillar swelling improves. (2) Acute bacterial tonsillitis Assessment & Plan: suspect streptococcus related, screening for streptococcus was negative , continue current antibiotics, monitor symptoms (3) Sepsis Assessment & Plan: due to the above, blood culture was sent, continue current antibiotics Subjective HEENT: Reports: other - SHE HAS MILD LEFT NECK PAIN AND SORE THROAT Allergies: Coded Allergies: No Known Allergies (Verified , 09/08/11) All Systems: reviewed and negative except above Objective Vital Signs Last 24 Hour Vital Signs Date Time Temp Pulse Resp B/P Pulse Ox O2 Delivery O2 Flow Rate FiO2 06/19/16 12:00 97.9 55 18 102/63 100 Room Air 06/19/16 08:00 97.7 63 18 107/78 100 Room Air 06/19/16 04:00 97.6 50 18 108/73 100 Room Air 06/19/16 00:00 97.9 53 18 106/71 100 Room Air 06/18/16 19:00 97.9 61 20 101/67 100 Room Air Height (Feet): 5 Height (Inches): 0.00 Weight (Pounds): 128 General Appearance: WD/WN, no acute distress HEENT: normocephalic, atraumatic, anicteric, mucous membranes moist, tonsils swollen Respiratory/Chest: chest wall non-tender, lungs clear, normal breath sounds, no respiratory distress, no accessory muscle use Cardiovascular: normal peripheral pulses, normal rate, regular rhythm, no gallop/murmur, no JVD Abdomen: normal bowel sounds, soft, non tender, no organomegaly, non distended , no mass, no scars Extremities: no cyanosis, no clubbing Skin: no rash, no lesions Microbiology Date/Time Source Procedure Growth Status 06/16/16 22:50 Blood Blood Culture - Preliminary NO GROWTH AFTER 48 HOURS Resulted 06/16/16 22:45 Blood Blood Culture - Preliminary NO GROWTH AFTER 48 HOURS Resulted 06/18/16 07:50 Throat Throat Culture - Preliminary NO GROWTH Resulted 06/16/16 23:00 Throat Throat Culture - Preliminary NO BETA STREP ISOLATED. Resulted 06/17/16 22:30 Indwelling Cath Urine Culture - Preliminary NO GROWTH Resulted Current Medications Medications (Trade) Dose Ordered Sig/Prakash Route PRN Reason Start Time Stop Time Status Last Admin Dose Admin Acetaminophen (Tylenol) 650 mg Q4H PRN ORAL fever 06/16/16 21:45 07/16/16 21:44 06/19/16 15:39 Albuterol/ Ipratropium 3 ml 3 ml Q4H PRN HHN Shortness of Breath 06/16/16 21:45 06/21/16 21:44 Cefepime HCl/ Dextrose (Maxipime/D5W) 110 ml @ 220 mls/hr Q12HR@1100,2300 IV 06/16/16 23:00 06/23/16 22:59 06/19/16 12:02 Heparin Sodium (Porcine) (Heparin 5000 units/ml) 5,000 units EVERY 12 HOURS SUBQ 06/17/16 23:00 07/17/16 22:59 Metronidazole 100 ml @ 100 mls/hr Q8HR IVPB 06/16/16 23:00 06/23/16 22:59 06/19/16 05:35 Morphine Sulfate (Morphine Sulfate) 2 mg Q4H PRN IVP Moderate Pain (Pain Scale 4-6) 06/16/16 21:45 06/23/16 21:44 06/18/16 22:17 Nitroglycerin (Ntg) 0.4 mg Q5M PRN SL Prn Chest Pain 06/16/16 21:45 07/16/16 21:44 Ondansetron HCl (Zofran) 4 mg Q6H PRN IVP Nausea & Vomiting 06/16/16 21:45 07/16/16 21:44 Polyethylene Glycol (Miralax) 17 gm DAILYPRN PRN ORAL Constipation 06/16/16 21:45 07/16/16 21:44 Temazepam (Restoril) 15 mg HSPRN PRN ORAL Insomnia 06/16/16 21:45 06/23/16 21:44 Vancomycin HCl 1 ea 1 ea DAILY PRN MISC PRN RX PROTOCOL 06/16/16 22:15 07/16/16 22:14 Vancomycin HCl/ Dextrose (Vancomycin/D5W) 275 ml @ 183.708 mls/hr Q12HR@0100,1300 IVPB 06/18/16 13:00 06/23/16 12:59 06/19/16 13:51 Kyree Otto M.D. Jun 19, 2016 17:11
[2016-06-19 21:00] VITALS: BP 106/51
[2016-06-20] VITALS: BP 109/82
[2016-06-20] MEDS: Vancomycin 1gm/D5W 275ml IVPB SCH ×4 (00:54→13:23)
[2016-06-20 04:00] VITALS: BP 102/58
[2016-06-20] MEDS: metroNIDAZOLE 500mg 100 ML IVPB SCH ×2 (06:06→14:00)
[2016-06-20] MEDS: Heparin 5000 units/ml inj SUBQ SCH (09:00)
[2016-06-20 11:26] VITALS: BP 106/64
[2016-06-20] MEDS: Cefepime HCl 2 GM in D5W 110 ML IV SCH (11:43)
--- NOTE | 2016-06-20 12:38 | General Progress Note ---
Assessment/Plan Problem List: (1) Cellulitis of tonsil ICD Codes: J36 - Peritonsillar abscess SNOMED: 141170501 (2) Acute bacterial tonsillitis ICD Codes: J03.80 - Acute tonsillitis due to other specified organisms; B96.89 - Other specified bacterial agents as the cause of diseases classified elsewhere SNOMED: 964863501 (3) Myalgia Status: progressing Assessment/Plan tonsillar cellulitis is improving continue w abx per id Subjective Respiratory: Reports: no symptoms Gastrointestinal/Abdominal: Reports: no symptoms Genitourinary: Reports: no symptoms Allergies: Coded Allergies: No Known Allergies (Verified , 09/08/11) Subjective sore throat is improving Objective Last 24 Hour Vital Signs Date Time Temp Pulse Resp B/P Pulse Ox O2 Delivery O2 Flow Rate FiO2 06/20/16 11:26 97.0 52 14 106/64 98 Room Air 06/20/16 07:16 97.7 06/20/16 04:00 97.7 50 18 102/58 99 Room Air 06/20/16 00:00 97.5 53 18 109/82 100 Room Air 06/19/16 21:00 97.7 55 18 106/51 98 Room Air Intake and Output 06/19/16 06/20/16 19:00 07:00 Intake Total 1025.000 ml 520 ml Balance 1025.000 ml 520 ml Intake Oral 540 ml 420 ml IV Total 485.000 ml 100 ml # Voids 2 4 # Bowel Movements 3 Laboratory Tests 06/20/16 12:15: Vancomycin Level Trough [Pending] Height (Feet): 5 Height (Inches): 0.00 Weight (Pounds): 128 EENT: PERRL/EOMI Neck: supple Cardiovascular: normal rate Respiratory/Chest: lungs clear Diandra Samson MD Jun 20, 2016 12:38
[2016-06-20] MEDS ORDERED: AUGMENTIN 875-1 EAC1 ORAL (14:34)
[2016-06-20] MEDS ORDERED: METRONIDAZOLE500 MG ORAL (14:35)
[2016-06-20 15:40] VITALS: BP 108/61
--- NOTE | 2016-06-20 15:40 | Infectious Diseases Prog Note ---
Assessment/Plan Problems: (1) Tonsillar abscess Assessment & Plan: improving on vancomycin, cefepime, and flagyl , was evaluated by ENT, no need for surgical drainage, will switch to oral augmantin and flagyl for 10 more days since her tonsillar swelling improved, and may D/C home with follow up with ENT as an outpatient . (2) Acute bacterial tonsillitis Assessment & Plan: suspect streptococcus spp related, screening for streptococcus was negative , continue current antibiotics, monitor symptoms (3) Sepsis Assessment & Plan: less likely with negative blood culture , continue current antibiotics Subjective Constitutional: Denies: anorexia, chills, drenching sweats, fatigue, fever, no symptoms, other HEENT: Denies: congestion, coryza, dysphagia, hearing change, no symptoms, other, visual change Respiratory: Denies: dry cough, no symptoms, other, productive cough, shortness of breath Breasts: Denies: discharge, no symptoms, other, swelling, tenderness Cardiovascular: Denies: chest pain, dyspnea on exertion, no symptoms, other, palpitations Gastrointestinal/Abdominal: Denies: bloating, blood in stool, constipation, diarrhea, nausea, no symptoms, other, vomiting Genitourinary: Denies: dysuria, frequency, hematuria, last menstrual period, no symptoms, nocturia, other, vaginal bleed/discharge Neurologic: Denies: confusion, headache, no symptoms, numbness, other, weakness Psychiatric: Denies: anxiety, depression, no symptoms, other Skin: Denies: no symptoms, other, rash, ulcer Endocrine: Denies: feels cold, feels warm, no symptoms, other Allergies: Coded Allergies: No Known Allergies (Verified , 09/08/11) Objective Vital Signs Last 24 Hour Vital Signs Date Time Temp Pulse Resp B/P Pulse Ox O2 Delivery O2 Flow Rate FiO2 06/20/16 11:26 97.0 52 14 106/64 98 Room Air 06/20/16 07:16 97.7 06/20/16 04:00 97.7 50 18 102/58 99 Room Air 06/20/16 00:00 97.5 53 18 109/82 100 Room Air 06/19/16 21:00 97.7 55 18 106/51 98 Room Air Height (Feet): 5 Height (Inches): 0.00 Weight (Pounds): 128 General Appearance: WD/WN, no acute distress HEENT: normocephalic, atraumatic, anicteric, mucous membranes moist Respiratory/Chest: chest wall non-tender, lungs clear, normal breath sounds, no respiratory distress, no accessory muscle use Cardiovascular: normal peripheral pulses, normal rate, regular rhythm, no gallop/murmur, no JVD Abdomen: normal bowel sounds, soft, non tender, no organomegaly, non distended , no mass Extremities: no cyanosis, no clubbing Skin: no rash, no lesions, no ulcers Microbiology Date/Time Source Procedure Growth Status 06/18/16 07:50 Throat Throat Culture - Final NO BETA STREP ISOLATED. Complete 06/17/16 22:30 Indwelling Cath Urine Culture - Final NO GROWTH AFTER 48 HOURS Complete Laboratory Tests Test 06/20/16 12:15 Vancomycin Level Trough 10.6 ug/mL (5.0-12.0) Current Medications Medications (Trade) Dose Ordered Sig/Prakash Route PRN Reason Start Time Stop Time Status Last Admin Dose Admin Acetaminophen (Tylenol) 650 mg Q4H PRN ORAL fever 06/16/16 21:45 07/16/16 21:44 06/20/16 06:17 Albuterol/ Ipratropium 3 ml 3 ml Q4H PRN HHN Shortness of Breath 06/16/16 21:45 06/21/16 21:44 Cefepime HCl/ Dextrose (Maxipime/D5W) 110 ml @ 220 mls/hr Q12HR@1100,2300 IV 06/16/16 23:00 06/23/16 22:59 06/20/16 11:43 Heparin Sodium (Porcine) (Heparin 5000 units/ml) 5,000 units EVERY 12 HOURS SUBQ 06/17/16 23:00 07/17/16 22:59 Metronidazole 100 ml @ 100 mls/hr Q8HR IVPB 06/16/16 23:00 06/23/16 22:59 06/20/16 06:06 Morphine Sulfate (Morphine Sulfate) 2 mg Q4H PRN IVP Moderate Pain (Pain Scale 4-6) 06/16/16 21:45 06/23/16 21:44 06/19/16 22:32 Nitroglycerin (Ntg) 0.4 mg Q5M PRN SL Prn Chest Pain 06/16/16 21:45 07/16/16 21:44 Ondansetron HCl (Zofran) 4 mg Q6H PRN IVP Nausea & Vomiting 06/16/16 21:45 07/16/16 21:44 06/19/16 23:54 Polyethylene Glycol (Miralax) 17 gm DAILYPRN PRN ORAL Constipation 06/16/16 21:45 07/16/16 21:44 Temazepam (Restoril) 15 mg HSPRN PRN ORAL Insomnia 06/16/16 21:45 06/23/16 21:44 Vancomycin HCl 1 ea 1 ea DAILY PRN MISC PRN RX PROTOCOL 06/16/16 22:15 07/16/16 22:14 Vancomycin HCl/ Dextrose (Vancomycin/D5W) 275 ml @ 183.708 mls/hr Q12HR@0100,1300 IVPB 06/18/16 13:00 06/23/16 12:59 06/20/16 13:23 Kyree Otto M.D. Jun 20, 2016 15:40
[2016-06-20] MEDS ORDERED: NS 275ml ONE (16:53)
[2016-06-20] MEDS ORDERED: Tubing IV Secondary IV ONE (16:53)
--- NOTE | 2016-06-22 15:01 | Discharge Summary ---
Discharge Summary Hospital Course Date of Admission Jun 16, 2016 at 17:23 Date of Discharge Jun 20, 2016 at 16:54 Admitting Diagnosis maggie-tonsillar cellulitis HPI Norma Rodriguez is a 25 year old female who was admitted on Jun 16, 2016 at 17: 23 for Maggie-Tonsillar Cellulitis Hospital Course dc summary dictated # [id number] Discharge Medications Continued Medications: Amoxicillin/Potassium Clav 875-125* (Augmentin 875-125 Tablet*) 1 Each Tablet 1 TAB ORAL TWICE A DAY for 10 Days, TAB Metronidazole* (Flagyl*) 500 Mg Tablet 500 MG ORAL EVERY 8 HOURS for 10 Days, TAB Discharge Condition Upon Discharge: stable Discharge Disposition Patient was discharged to Home () Discharge Diagnoses: Cruz ([facility]),Codi LUQUE Jun 22, 2016 15:01
--- NOTE | 2016-06-23 04:49 | Discharge Summary 2 SIG ---
DATE OF ADMISSION: 06/16/2016 DATE OF DISCHARGE: 06/20/2016 REASON FOR ADMISSION: 25-year-old female came to emergency room for evaluation. She stated she had a sore throat, which became worse on the left side. She also complained of the left-sided neck pain. Her left ear over the last day started to hurt as well. She complained of generalized fatigue and body aches. She denied nausea or vomiting. No chest pain. No shortness of breath. No cough. No fever. No chills. No past medical history. In the emergency room, the patient had a CT of the neck, which revealed in the inferior periphery of the left tonsillar region ill-defined irregular subtle area of low attenuation suspicious for area of phlegmon, but early abscess formation was not completely excludable, however no evidence of discrete abscess. The patient had no leukocytosis. All laboratory work was stable. The patient started on antibiotics clindamycin IV in the emergency room and admitted for further management. ADMITTING DIAGNOSES: possible sepsis left tonsillar cellulitis tonsillitis possible abscess HOSPITAL STAY: ID and ENT consult were requested. ID recommended IV regimen of vancomycin, cefepime, and Flagyl on which the patient was clinically improving. Throat culture revealed no beta strep. Blood culture were negative. Influenza screen was negative. Urine culture was negative. ENT evaluated the patient and felt there was no need for surgical incision and drainage, since the patient was improving clinically with conservative treatment. The patient was afebrile, no leukocytosis. Antibiotics changed prior to discharge to oral Augmentin and Flagyl for additional 10 days as recommended by ID. Follow up with ENT as outpatient. DISCHARGE DIAGNOSES: 1. Possible sepsis. 2. Acute bacterial tonsillitis. 3. Possible tonsillar abscess. 4. Possible left tonsillar cellulitis DISCHARGE MEDICATIONS: See medication reconciliation list. Recommended and instructed the patient to take antibiotics for 10 more days. DISCHARGE INSTRUCTIONS: Follow up with the ENT specialist as outpatient after completion of antibiotic. Diandra Samson M.D. I have been assigned to dictate discharge summary on this account and I was not involved in the patient's management. Codi Arroyo N.P. ([place]) DR: LILI JOB#: [id number] CC: FLORIN
== END 2016-06-20 16:54 | disposition home or self-care (01) | DRG 720 ==
LOC: EMR 12:07 → 4E 17:23 → EDBEDREQ 18:48 → 4E 19:39
DX: A41.9 Sepsis, unspecified organism (principal); J03.80 Acute tonsillitis due to other specified organisms; B96.89 Other specified bacterial agents as the cause of diseases classified elsewhere
CPT/HCPCS: 36415; 70491; 71010; 80053; 80202; 81025; 85025; 86710; 87040; 87070; 87086; J2405; S0077

== ENCOUNTER 2016-09-06 05:02 | Emergency (ER) | payer MEDICAID ==
[~2016-09-06] VITALS: Ht 152.4 cm; Wt 57.6 kg
[~2016-09-06 05:02] MED LIST changes: +AUGMENTIN 875-1 EAC1 ORAL; +METRONIDAZOLE500 MG ORAL
[2016-09-06] MEDS ORDERED: Tubing IV Cassette IV ONE (05:40)
[2016-09-06 05:42] LABS: KETONES,URINE 4+ (NEGATIVE); LEUKOCYTE ESTERASE ,URINE NEGATIVE (NEGATIVE); NITRITE,URINE NEGATIVE (NEGATIVE); PH,URINE 5 (4.5-8.0); UROBILINOGEN,URINE NORMAL MG/DL (0.0-1.0)
[2016-09-06] MEDS ORDERED: Ketorolac 30mg Inj IV ONE (05:45)
[2016-09-06 05:48] LABS: APPEARANCE,URINE CLEAR; PROTEIN,URINE NEGATIVE (NEGATIVE)
[2016-09-06 06:06] LABS: BASOPHILS % (AUTO) 0.6 % (0.0-2.0); EOSINOPHILS % (AUTO) 0.1 % (0.0-3.0); LYMPHOCYTES % (AUTO) 12.2 % (20.0-45.0); MEAN CORPUSCULAR HEMOGLOBIN 28.1 PG (27.0-31.0); MEAN CORPUSCULAR HGB CONC 32.4 G/DL (32.0-36.0); MEAN CORPUSCULAR VOLUME 87 FL (80-99); MEAN PLATELET VOLUME 7.8 FL (6.5-10.1); MONOCYTES % (AUTO) 11.7 % (1.0-10.0); NEUTROPHILS % (AUTO) 75.5 % (45.0-75.0); PLATELET COUNT 238 K/UL (150-450); RED BLOOD COUNT 4.86 M/UL (4.20-5.40); RED CELL DISTRIBUTION WIDTH 12.6 % (11.6-14.8); WHITE BLOOD COUNT 5.1 K/UL (4.8-10.8)
[2016-09-06] MEDS ORDERED: ZOFRAN ODT4 MG ORAL (06:18)
[2016-09-06] MEDS ORDERED: IBUPROFEN600 MG ORAL (06:18)
--- NOTE | 2016-09-06 06:18 | Emergency Room Report ---
History of Present Illness General Chief Complaint: Abdominal Pain Source: Patient Present Illness HPI Is a 25-year-old female with no past medical history. She presents with chief complaint abdominal pain with vomiting and diarrhea. Onset was 2 days ago. This occur after eating at a nearby fast food restaurant. An hour after she ate dinner she felt cramping pain and since then she been having profuse diarrhea with vomiting. Unable to keep anything in. Vomiting is nonbloody and nonbilious. Diarrhea is watery. Has not take anything for this. She felt very dehydrated. Allergies: Coded Allergies: No Known Allergies (Verified , 09/08/11) Patient History Past Medical History: none Past Surgical History: none Pertinent Family History: none Social History: Denies: alcohol use Last Menstrual Period: LAST MONTH Now: No : 0 Para: 0 Immunizations: other Reviewed Nursing Documentation: PMH: Agreed, PSxH: Agreed Nursing Documentation-PM Past Medical History: No Stated History Hx Cardiac Problems: No Hx Cancer: No Hx Gastrointestinal Problems: No Hx Neurological Problems: No Review of Systems Eye: Denies: blurred vision, eye pain ENT: Denies: ear pain, nose congestion, throat swelling Respiratory: Denies: cough, shortness of breath Cardiovascular: Denies: chest pain, palpitations Gastrointestinal: Reports: abdominal pain, diarrhea, nausea, vomiting Musculoskeletal: Denies: back pain, joint pain Skin: Denies: rash Neurological: Denies: headache, numbness Endocrine: Denies: increased thirst, increased urine Hematologic/Lymphatic: Denies: easy bruising All Other Systems: negative except mentioned in HPI Physical Exam Vital Signs Date Time Temp Pulse Resp B/P Pulse Ox O2 Delivery O2 Flow Rate FiO2 09/06/16 05:05 98.2 82 18 135/79 98 Room Air vitals unremarkable Sp02 EP Interpretation: reviewed, normal General Appearance: well appearing, no apparent distress, alert Head: normocephalic, atraumatic Eyes: bilateral eye EOMI, bilateral eye PERRL ENT: hearing grossly normal, normal pharynx Neck: full range of motion, supple, no meningismus Respiratory: chest non-tender, lungs clear, normal breath sounds Cardiovascular #1: regular rate, rhythm, no murmur Gastrointestinal: non tender, no mass, no organomegaly, no bruit, non-distended , abnormal bowel sounds - hypoactive BS Musculoskeletal: back normal, gait/station normal, normal range of motion Neurologic: alert, oriented x3 Psychiatric: mood/affect normal Skin: warm/dry Medical Decision Making Diagnostic Impression: Primary Impression: Abdominal pain Qualified Codes: R10.84 - Generalized abdominal pain Additional Impressions: Food poisoning Qualified Codes: T62.91XA - Toxic effect of unspecified noxious substance eaten as food, accidental (unintentional), initial encounter Dehydration ER Course Patient with abdominal pain with vomiting and diarrhea. She is dehydrated. This most likely food poisoning since this occur right after she ate. Could also be acute gastroenteritis. She felt better after IV hydration. We'll discharge home if chemistries normal. Lab Results Impression labs unremarkable Last Vital Signs Date Time Temp Pulse Resp B/P Pulse Ox O2 Delivery O2 Flow Rate FiO2 09/06/16 05:05 98.2 82 18 135/79 98 Room Air Status: improved Disposition: HOME, SELF-CARE Condition: Stable Scripts Ibuprofen* (MOTRIN*) 600 Mg Tablet 600 MG ORAL THREE TIMES A DAY, #20 TAB 0 Refills Prov: SEKOU MARLEY M.D. 09/06/16 Ondansetron Odt* (ZOFRAN ODT*) 4 Mg Tab.rapdis 4 MG ORAL Q6H Y for Nausea & Vomiting, #10 TAB 0 Refills Prov: SEKOU MARLEY M.D. 09/06/16 Additional Instructions: Increase fluids. Followup with your Dr. in 2 to 3 days. Return if symptom worsen. SEKOU MARLEY M.D. Sep 06, 2016 06:18
[2016-09-06 06:27] LABS: ALANINE AMINOTRANSFERASE 17 U/L (3-33); ALBUMIN/GLOBULIN RATIO 1.1 (1.0-2.7); ANION GAP 19 (5-15); ASPARTATE AMINO TRANSFERASE 24 U/L (5-40); CALCIUM 9.3 mg/dL (8.6-10.2); CARBON DIOXIDE 22 mEQ/L (20-30); CHLORIDE 95 mEQ/L (98-107); CREATININE 0.9 mg/dL (0.5-0.9); GLOMERULAR FILTRATION RATE > 60 mL/min (>60); HEMOLYSIS 3; LIPASE 15 U/L (< 60); POTASSIUM 3.8 mEQ/L (3.4-4.9); SODIUM 136 mEQ/L (135-145); TOTAL PROTEIN 8.6 g/dL (6.6-8.7)
[2016-09-06 06:29] VITALS: BP 93/64
[2016-09-06 07:10] VITALS: BP 93/64
== END 2016-09-06 07:10 | disposition home or self-care (01) ==
LOC: EMR 05:40
DX: R10.9 Unspecified abdominal pain (principal); T62.91XA Toxic effect of unspecified noxious substance eaten as food, accidental (unintentional), initial encounter; K52.1 Toxic gastroenteritis and colitis; R11.2 Nausea with vomiting, unspecified; E86.0 Dehydration
CPT/HCPCS: 36415; 80053; 81003; 83690; 85025; 96360; 96374; 96375; 99284; J1885; J2405

== ENCOUNTER 2017-09-11 04:20 | Emergency (ER) | payer MEDICAID, OTHER ==
[~2017-09-11] VITALS: Ht 152.4 cm; Wt 74.8 kg
[~2017-09-11 04:20] MED LIST changes: +ZOFRAN ODT4 MG ORAL
[2017-09-11 04:29] VITALS: BP 138/82
[2017-09-11] MEDS ORDERED: AMOXICILLIN500 MG ORAL (04:42)
[2017-09-11] MEDS ORDERED: IBUPROFEN600 MG ORAL (04:42)
[2017-09-11] MEDS ORDERED: Lidocaine 2% Visc 15ml soln ORAL ONE (04:45)
[2017-09-11 05:05] VITALS: BP 138/82
--- NOTE | 2017-09-11 06:59 | Emergency Room Report ---
History of Present Illness General Chief Complaint: Sore Throat Source: Patient Present Illness HPI Patient is a 26-year-old female who presented after increased sore throat. Patient gradual onset of symptoms approximate 1 day prior to arrival. She reports having initially some left earache. Patient denies any fever. She reported having been able tolerate liquids. Allergies: Coded Allergies: No Known Allergies (Verified , 09/11/17) Patient History Past Medical History: see triage record Last Menstrual Period: now Now: No Reviewed Nursing Documentation: PMH: Agreed; PSxH: Agreed Nursing Documentation-PM Past Medical History: No Stated History Hx Cardiac Problems: No Hx Cancer: No Hx Gastrointestinal Problems: No Hx Neurological Problems: No Review of Systems All Other Systems: negative except mentioned in HPI Physical Exam Vital Signs Date Time Temp Pulse Resp B/P (MAP) Pulse Ox O2 Delivery O2 Flow Rate FiO2 09/11/17 04:26 98.3 78 16 138/82 97 Room Air 98.2 Sp02 EP Interpretation: reviewed, normal General Appearance: normal inspection, well appearing, no apparent distress, alert, GCS 15 Head: atraumatic ENT: normal ENT inspection, hearing grossly normal, normal voice, TMs + canals normal, uvula midline, tonsillar swelling, pharyngeal erythema, tonsillar exudate Neck: normal inspection, full range of motion, supple, no bony tend Respiratory: normal inspection, lungs clear, normal breath sounds, no respiratory distress, no retraction, no wheezing Cardiovascular #1: regular rate, rhythm, no edema Gastrointestinal: normal inspection, normal bowel sounds, non tender, soft, no guarding, no hernia Genitourinary: no CVA tenderness Musculoskeletal: normal inspection, back normal, normal range of motion Neurologic: normal inspection, alert, oriented x3, responsive, management trainer III-XII nml as tested, speech normal Psychiatric: normal inspection, judgement/insight normal, mood/affect normal Skin: normal inspection, normal color, no rash Medical Decision Making Diagnostic Impression: Primary Impression: Pharyngitis, acute ER Course Patient presented for sore throat. Differential diagnosis included but was not limited to meningitis, exudative tonsillitis, retropharyngeal abscess, epiglottitis, strep pharyngitis. Patient has a benign exam and does not appear to require any further imaging or laboratory testing at this time. The patient appears to have a exudative pharyngitis. Patient was given prescription for oral antibiotics as well as pain medications. Last Vital Signs Date Time Temp Pulse Resp B/P (MAP) Pulse Ox O2 Delivery O2 Flow Rate FiO2 09/11/17 05:05 98.2 78 16 138/82 97 Room Air 208.8 Status: improved Disposition: HOME, SELF-CARE Condition: Improved Scripts Amoxicillin* (AMOXIL*) 500 Mg Capsule 500 MG ORAL THREE TIMES A DAY, #21 CAP Prov: Usman Najera 09/11/17 Ibuprofen* (MOTRIN*) 600 Mg Tablet 600 MG ORAL THREE TIMES A DAY, #20 TAB 0 Refills Prov: Usman Najera 09/11/17 Patient Instructions: Pharyngitis, [id number] Usman Najera September 11, 2017 06:59
== END 2017-09-11 05:05 | disposition home or self-care (01) ==
LOC: EMR 04:38
DX: J02.9 Acute pharyngitis, unspecified (principal)
CPT/HCPCS: 99284

== ENCOUNTER 2017-10-23 18:05 | Emergency (ER) | payer OTHER ==
[~2017-10-23] VITALS: Ht 152.4 cm; Wt 58.1 kg
[2017-10-23 19:30] VITALS: BP 110/72
[2017-10-23 20:57] LABS: APPEARANCE,URINE CLEAR; BILIRUBIN, URINE NEGATIVE (NEGATIVE); COLOR,URINE PALE YELLOW; GLUCOSE, URINE (UA) NEGATIVE (NEGATIVE); KETONES,URINE NEGATIVE (NEGATIVE); LEUKOCYTE ESTERASE ,URINE 1+ (NEGATIVE); NITRITE,URINE NEGATIVE (NEGATIVE); PH,URINE 7 (4.5-8.0); PROTEIN,URINE 1+ (NEGATIVE); UROBILINOGEN,URINE NORMAL MG/DL (0.0-1.0)
[2017-10-23 21:07] VITALS: BP 110/72
--- NOTE | 2017-10-24 22:51 | Emergency Room Report ---
History of Present Illness General Chief Complaint: Vaginal Source: Patient Present Illness HPI Patient is a 26-year-old female brought in by private car after the persistent vaginal bleeding for approximately 2 weeks. Patient reportedly had been having small amount of bleeding. This had not resulted in any dizziness or lightheadedness. Patient denies any vaginal discharge or severe pain. She denies being . She states she's previously had regular periods Allergies: Coded Allergies: No Known Allergies (Verified , 09/11/17) Patient History Past Medical History: see triage record Now: No : 0 Para: 0 Reviewed Nursing Documentation: PMH: Agreed; PSxH: Agreed Nursing Documentation-PMH Past Medical History: No Stated History Hx Cardiac Problems: No Hx Cancer: No Hx Gastrointestinal Problems: No Hx Neurological Problems: No Review of Systems All Other Systems: negative except mentioned in HPI Physical Exam Vital Signs Date Time Temp Pulse Resp B/P (MAP) Pulse Ox O2 Delivery O2 Flow Rate FiO2 10/23/17 18:34 98.1 65 18 114/76 98 Room Air 98.1 General Appearance: well appearing, no apparent distress, alert, GCS 15 Head: normocephalic, atraumatic ENT: hearing grossly normal, normal voice Neck: full range of motion, supple Respiratory: no respiratory distress, speaking full sentences Musculoskeletal: normal inspection, no calf tenderness Neurologic: normal inspection, alert, oriented x3, responsive, electrochemist III-XII nml as tested, normal gait Psychiatric: mood/affect normal Skin: no rash Medical Decision Making Diagnostic Impression: Primary Impression: Metrorrhagia ER Course The patient presented for vaginal bleeding. Differential diagnosis included was not limited to menorrhagia, threatened , incomplete , ectopic among others. Urine test was noted to be negative. The patient the denies any dizziness. The patient appears to be stable for outpatient workup. The patient was advised follow-up with [facility] for further evaluation of menorrhagia. Last Vital Signs Date Time Temp Pulse Resp B/P (MAP) Pulse Ox O2 Delivery O2 Flow Rate FiO2 10/23/17 21:07 98.1 67 18 110/72 98 Room Air 98.1 Status: improved Disposition: HOME, SELF-CARE Condition: Stable Referrals: [facility],REFERRING (PCP) Patient Instructions: Usman Wallace MD Oct 24, 2017 22:51
== END 2017-10-23 21:07 | disposition home or self-care (01) ==
LOC: EMR 20:30
DX: N92.1 Excessive and frequent menstruation with irregular cycle (principal)
CPT/HCPCS: 81003; 81025; 99282

== ENCOUNTER 2018-04-13 21:46 | Emergency (ER) | payer MEDICAID, OTHER ==
[~2018-04-13] VITALS: Ht 152.4 cm; Wt 61.2 kg
[2018-04-13 21:57] VITALS: BP 127/79
[2018-04-13] MEDS ORDERED: IBUPROFEN600 MG ORAL (22:33)
[2018-04-13] MEDS ORDERED: CEPHALEXIN500 MG ORAL (22:33)
[2018-04-13] MEDS ORDERED: NEOSPORIN OINTM30 GM TP (22:33)
[2018-04-13] MEDS ORDERED: BACTRIM DS TAB1 EAC1 ORAL (22:33)
[2018-04-13 22:40] VITALS: BP 121/75
[2018-04-13 22:45] VITALS: BP 121/75
--- NOTE | 2018-04-13 22:59 | Emergency Room Report ---
History of Present Illness General Chief Complaint: Pain Source: Patient Present Illness HPI Patient reports that around Thanksgiving time she had her toenails done at a [facility] at the time she felt some discomfort to the medial aspect of that right large toe There was some mild discomfort Now over the past several days patient has noticed increased redness and swelling She had soaked the foot in peroxide Pain is worse with ambulation worse with touch Denies any other fevers denies any ankle pain Allergies: Coded Allergies: No Known Allergies (Verified , 09/11/17) Patient History Past Medical History: see triage record Pertinent Family History: none Last Menstrual Period: last month Now: No Reviewed Nursing Documentation: PMH: Agreed; PSxH: Agreed Nursing Documentation-PMH Past Medical History: No Stated History Hx Cardiac Problems: No Hx Cancer: No Hx Gastrointestinal Problems: No Hx Neurological Problems: No Review of Systems All Other Systems: negative except mentioned in HPI Physical Exam Vital Signs Date Time Temp Pulse Resp B/P (MAP) Pulse Ox O2 Delivery O2 Flow Rate FiO2 04/13/18 21:53 98.1 73 18 131/85 98 Room Air Sp02 EP Interpretation: reviewed, normal General Appearance: well appearing, no apparent distress Head: normocephalic, atraumatic Eyes: bilateral eye PERRL, bilateral eye EOMI ENT: hearing grossly normal, normal pharynx Neck: supple Musculoskeletal: swelling - Erythema and mild discharge medial aspect of the large toe on the right side, the nailbed appears intact, sensory is intact Neurologic: alert, oriented x3, responsive Skin: other - As above Lymphatic: no adenopathy Medical Decision Making Diagnostic Impression: Primary Impression: Paronychia ER Course Patient's clinical history and exam is consistent with paronychia Patient is placed on oral antibiotics Requires soaking and was given referral for podiatry specialty follow-up Last Vital Signs Date Time Temp Pulse Resp B/P (MAP) Pulse Ox O2 Delivery O2 Flow Rate FiO2 04/13/18 22:45 97.8 83 18 121/75 100 Room Air Status: unchanged Disposition: HOME, SELF-CARE Condition: Stable Scripts Ibuprofen* (MOTRIN*) 600 Mg Tablet 600 MG ORAL Q8H PRN for For Pain, #20 TAB 0 Refills Prov: Diandra Mccarthy DO 04/13/18 Neomycin Baig/Bacitrac Zn/Poly (Neosporin Ointment) 28.3 Gm Oint...g. 1 INCH TP TID for 10 Days, GM Prov: Diandra Mccarthy DO 04/13/18 Trimethoprim/Sulfamethoxazole 160/800* (BACTRIM DS TABLET*) 1 Each Tablet 1 TAB ORAL Q12H, #20 TAB 0 Refills Prov: Diandra Mccarthy DO 04/13/18 Cephalexin* (KEFLEX*) 500 Mg Capsule 500 MG ORAL EVERY 6 HOURS for 10 Days, CAP Prov: Diandra Mccarthy DO 04/13/18 Referrals: JANIYA QUEVEDO M.D. Patient Instructions: Liana, [id number] Additional Instructions: Patient is provided with the discharge instructions notified to follow up with primary doctor in the next 2-3 days otherwise return to the er with any worsening symptoms. Please note that this report is being documented using [employer] technology. This can lead to erroneous entry secondary to incorrect interpretation by the dictating instrument. Diandra Mccarthy DO Apr 13, 2018 22:59
== END 2018-04-13 22:45 | disposition home or self-care (01) ==
LOC: EMR 22:07
DX: L03.031 Cellulitis of right toe (principal)
CPT/HCPCS: 99283

== ENCOUNTER 2018-08-16 13:46 | Emergency (ER) | payer SELFPAY ==
[~2018-08-16] VITALS: Ht 152.4 cm; Wt 61.7 kg
[~2018-08-16 13:46] MED LIST changes: +BACTRIM DS TAB1 EAC1 ORAL; +CEPHALEXIN500 MG ORAL; +NEOSPORIN OINTM30 GM TP
[2018-08-16] MEDS ORDERED: Dicyclomine HCl 10mg/5ml oral soln ORAL ONE (14:15)
--- NOTE | 2018-08-16 14:15 | NUR ---
ED Nurse Note: Pt arrived to ED c/o N/V/D pt states that the pain started last night. Pt is AAOx4 respirations are even and unlabored.
--- NOTE | 2018-08-16 14:21 | Emergency Room Report ---
History of Present Illness General Chief Complaint: Abdominal Pain Source: Patient Present Illness HPI Patient presents with complaints of mid lower abdominal pain reports that cramping for the past 2 days patient started her menstrual cycle at similar time as well Today however she had episode of vomiting last night had episode of diarrhea And with that she was concerning came to the ER Denies any chest pain or shortness of breath denies any fevers or chills denies any dysuria frequency Has not had any previous surgeries Allergies: Coded Allergies: No Known Allergies (Verified , 09/11/17) Patient History Past Medical History: see triage record Pertinent Family History: none Last Menstrual Period: 08/12/18 Now: No Reviewed Nursing Documentation: PMH: Agreed; PSxH: Agreed Nursing Documentation-PMH Past Medical History: No Stated History Hx Cardiac Problems: No Hx Cancer: No Hx Gastrointestinal Problems: No Hx Neurological Problems: No Review of Systems All Other Systems: negative except mentioned in HPI Physical Exam Vital Signs Date Time Temp Pulse Resp B/P (MAP) Pulse Ox O2 Delivery O2 Flow Rate FiO2 08/16/18 13:51 99.1 62 20 122/63 97 Room Air Sp02 EP Interpretation: reviewed, normal General Appearance: well appearing, no apparent distress Head: normocephalic, atraumatic Eyes: bilateral eye PERRL, bilateral eye EOMI ENT: hearing grossly normal, normal pharynx, TMs + canals normal, uvula midline Neck: full range of motion, supple, no meningismus, no bony tend Respiratory: lungs clear, normal breath sounds, no rhonchi, no respiratory distress, no retraction, no accessory muscle use Cardiovascular #1: normal peripheral pulses, regular rate, rhythm, no edema, no gallop, no JVD, no murmur Gastrointestinal: normal bowel sounds, non tender - However subjectively points midline suprapubic region, soft, no mass, no organomegaly, non-distended , no guarding, no hernia, no pulsatile mass, no rebound Genitourinary: no CVA tenderness Musculoskeletal: normal inspection Neurologic: oriented x3, responsive, window installer III-XII nml as tested, motor strength/ tone normal, sensory intact Psychiatric: mood/affect normal Skin: normal color, no rash, warm/dry, palpation normal Lymphatic: normal inspection, no adenopathy Medical Decision Making Diagnostic Impression: Primary Impression: Abdominal pain Additional Impression: Diarrhea ER Course With the patient's history and examination, multiple differentials considered, including but not limited to , ectopic , ovarian torsion, gastritis, cholecystitis, pancreatitis, appendicitis Patient's blood work is otherwise fairly benign Given the vomiting and diarrhea episode Likely viral pathology Other differentials such as early appendicitis cannot be ruled out patient however does not meet criteria for acute imaging given the abdominal exam and repeat exam Patient will have initial conservative outpatient trial and return with any changes such as fevers or worsening pain Labs Test 08/16/18 14:11 White Blood Count 3.8 K/UL (4.8-10.8) Red Blood Count 4.46 M/UL (4.20-5.40) Hemoglobin 12.0 G/DL (12.0-16.0) Hematocrit 37.0 % (37.0-47.0) Mean Corpuscular Volume 83 FL (80-99) Mean Corpuscular Hemoglobin 27.0 PG (27.0-31.0) Mean Corpuscular Hemoglobin Concent 32.5 G/DL (32.0-36.0) Red Cell Distribution Width 11.1 % (11.6-14.8) Platelet Count 262 K/UL (150-450) Mean Platelet Volume 7.6 FL (6.5-10.1) Neutrophils (%) (Auto) 54.5 % (45.0-75.0) Lymphocytes (%) (Auto) 33.4 % (20.0-45.0) Monocytes (%) (Auto) 10.9 % (1.0-10.0) Eosinophils (%) (Auto) 0.7 % (0.0-3.0) Basophils (%) (Auto) 0.6 % (0.0-2.0) Urine Color Pale yellow Urine Appearance Clear Urine pH 7 (4.5-8.0) Urine Specific [place] 1.010 (1.005-1.035) Urine Protein Negative (NEGATIVE) Urine Glucose (UA) Negative (NEGATIVE) Urine Ketones Negative (NEGATIVE) Urine Blood Negative (NEGATIVE) Urine Nitrite Negative (NEGATIVE) Urine Bilirubin Negative (NEGATIVE) Urine Urobilinogen Normal MG/DL (0.0-1.0) Urine Leukocyte Esterase Negative (NEGATIVE) Urine HCG, Qualitative Negative (NEGATIVE) Sodium Level 141 MMOL/L (136-145) Potassium Level 3.5 MMOL/L (3.5-5.1) Chloride Level 106 MMOL/L (98-107) Carbon Dioxide Level 28 MMOL/L (21-32) Anion Gap 7 mmol/L (5-15) Blood Urea Nitrogen 14 mg/dL (7-18) Creatinine 0.9 MG/DL (0.55-1.30) Estimat Glomerular Filtration Rate > 60 mL/min (>60) Glucose Level 89 MG/DL (74-106) Calcium Level 9.0 MG/DL (8.5-10.1) Total Bilirubin 0.2 MG/DL (0.2-1.0) Aspartate Amino Transf (AST/SGOT) 14 U/L (15-37) Alanine Aminotransferase (ALT/SGPT) 15 U/L (12-78) Alkaline Phosphatase 54 U/L (46-116) Total Protein 8.3 G/DL (6.4-8.2) Albumin 3.7 G/DL (3.4-5.0) Globulin 4.6 g/dL Albumin/Globulin Ratio 0.8 (1.0-2.7) Lipase 104 U/L (73-393) Last Vital Signs Date Time Temp Pulse Resp B/P (MAP) Pulse Ox O2 Delivery O2 Flow Rate FiO2 08/16/18 13:51 99.1 62 20 122/63 97 Room Air Status: improved Disposition: HOME, SELF-CARE Condition: Improved Scripts Ibuprofen* (MOTRIN*) 600 Mg Tablet 600 MG ORAL Q8H PRN for For Pain, #20 TAB 0 Refills Prov: Diandra Mccarthy DO 08/16/18 Ondansetron (Zofran) 4 Mg Tablet 4 MG ORAL Q12HR PRN for Nausea & Vomiting, #12 TAB Prov: Diandra Mccarthy DO 08/16/18 Additional Instructions: Patient is provided with the discharge instructions notified to follow up with primary doctor in the next 2-3 days otherwise return to the er with any worsening symptoms. Please note that this report is being documented using [employer] technology. This can lead to erroneous entry secondary to incorrect interpretation by the dictating instrument. Diandra Mccarthy DO Aug 16, 2018 14:21
[2018-08-16 14:28] LABS: BASOPHILS % (AUTO) 0.6 % (0.0-2.0); EOSINOPHILS % (AUTO) 0.7 % (0.0-3.0); LYMPHOCYTES % (AUTO) 33.4 % (20.0-45.0); MEAN CORPUSCULAR VOLUME 83 FL (80-99); MONOCYTES % (AUTO) 10.9 % (1.0-10.0); NEUTROPHILS % (AUTO) 54.5 % (45.0-75.0); PLATELET COUNT 262 K/UL (150-450); RED BLOOD COUNT 4.46 M/UL (4.20-5.40); RED CELL DISTRIBUTION WIDTH 11.1 % (11.6-14.8); WHITE BLOOD COUNT 3.8 K/UL (4.8-10.8)
[2018-08-16 14:33] LABS: APPEARANCE,URINE CLEAR; BILIRUBIN, URINE NEGATIVE (NEGATIVE); COLOR,URINE PALE YELLOW; GLUCOSE, URINE (UA) NEGATIVE (NEGATIVE); KETONES,URINE NEGATIVE (NEGATIVE); LEUKOCYTE ESTERASE ,URINE NEGATIVE (NEGATIVE); NITRITE,URINE NEGATIVE (NEGATIVE); PH,URINE 7 (4.5-8.0); PROTEIN,URINE NEGATIVE (NEGATIVE); UROBILINOGEN,URINE NORMAL MG/DL (0.0-1.0)
[2018-08-16 14:44] LABS: ANION GAP 7 mmol/L (5-15); BLOOD UREA NITROGEN 14 mg/dL (7-18); CARBON DIOXIDE 28 MMOL/L (21-32); CHLORIDE 106 MMOL/L (98-107); CREATININE 0.9 MG/DL (0.55-1.30); POTASSIUM 3.5 MMOL/L (3.5-5.1); SODIUM 141 MMOL/L (136-145)
[2018-08-16 14:49] LABS: ALANINE AMINOTRANSFERASE 15 U/L (12-78); ALBUMIN 3.7 G/DL (3.4-5.0); ALBUMIN/GLOBULIN RATIO 0.8 (1.0-2.7); ALKALINE PHOSPHATASE 54 U/L (46-116); ASPARTATE AMINO TRANSFERASE 14 U/L (15-37); BILIRUBIN,TOTAL 0.2 MG/DL (0.2-1.0)
[2018-08-16] MEDS ORDERED: IBUPROFEN600 MG ORAL (15:33)
[2018-08-16] MEDS ORDERED: ZOFRAN4 M1 ORAL (15:33)
[2018-08-16 15:53] VITALS: BP 120/65
--- NOTE | 2018-08-16 15:54 | NUR ---
ED Nurse Note: Pt cleared by health care Provider for discharge. DC instructions/prescription was given and explained to pt and verbalized understanding of teachings. All medical deviecs such as ID band removed. Pt is AAO x4, ambulatory and left with all personal belongings.
[2018-08-16 15:55] VITALS: BP 120/65
== END 2018-08-16 15:57 | disposition home or self-care (01) ==
LOC: EMR 15:10
DX: R10.30 Lower abdominal pain, unspecified (principal); R19.7 Diarrhea, unspecified; R11.10 Vomiting, unspecified
CPT/HCPCS: 36415; 80053; 81003; 81025; 83690; 85025; 99283

== ENCOUNTER 2019-10-30 01:02 | Emergency (ER) | payer SELFPAY ==
[~2019-10-30] VITALS: Ht 152.4 cm; Wt 60.8 kg
[~2019-10-30 01:02] MED LIST changes: +ZOFRAN4 M1 ORAL
[2019-10-30 01:34] VITALS: BP 146/77
--- NOTE | 2019-10-30 01:34 | NUR ---
ED Nurse Note: pt ambulated into ed from home [place] generalized itchines over entire body x 1 week. No visible rash or redness noted. Pt aao x 4, ambulates with steady gait. Pt denies new medicine, foods/food allergies, new detergents or skin products. Awaiting ERMD at bedside
--- NOTE | 2019-10-30 01:38 | NUR ---
ED Nurse Note: ERMD at bedside
[2019-10-30] MEDS ORDERED: PREDNISONE20 MG ORAL (01:48)
[2019-10-30] MEDS ORDERED: BENADRYL25 MG ORAL (01:48)
--- NOTE | 2019-10-30 01:49 | Emergency Room Report ---
History of Present Illness General Chief Complaint: Skin Rash/Abscess Source: Patient Present Illness HPI This is a 28-year-old female with no past medical history. She presents with chief plaint of itching. This been ongoing for 2 weeks. This occurred after she came back from a friend's friend's house. No rash. Mom was there and also had the same symptoms but resolved. No fever chills but no nausea no vomiting. She only took Benadryl twice since then. No respiratory issue. Allergies: Coded Allergies: No Known Allergies (Verified , 09/11/17) COVID-19 Screening Contact w/high risk pt: No Recent Travel to affected area: No Experienced COVID-19 symptoms?: No COVID-19 Testing performed BAND TUMBLER: No Patient History Past Medical History: see triage record, old chart reviewed Past Surgical History: none Pertinent Family History: none Social History: Denies: smoking Last Menstrual Period: 10-23-2019 Now: No Immunizations: other Reviewed Nursing Documentation: PMH: Agreed; PSxH: Agreed Nursing Documentation-PMH Past Medical History: No Stated History Hx Cardiac Problems: No Hx Cancer: No Hx Gastrointestinal Problems: No Hx Neurological Problems: No Review of Systems Eye: Denies: eye pain, blurred vision ENT: Denies: ear pain, nose congestion, throat swelling Respiratory: Denies: cough, shortness of breath Cardiovascular: Denies: chest pain, palpitations Gastrointestinal: Denies: abdominal pain, diarrhea, nausea, vomiting Musculoskeletal: Denies: back pain, joint pain Skin: Denies: rash Neurological: Denies: headache, numbness Endocrine: Denies: increased thirst, increased urine Hematologic/Lymphatic: Denies: easy bruising All Other Systems: negative except mentioned in HPI Physical Exam Vital Signs Date Time Temp Pulse Resp B/P (MAP) Pulse Ox O2 Delivery O2 Flow Rate FiO2 10/30/19 01:22 98.4 63 16 146/77 (100) 97 Room Air Vitals with high blood pressure Sp02 EP Interpretation: reviewed, normal General Appearance: well appearing, no apparent distress, alert Head: normocephalic, atraumatic Eyes: bilateral eye PERRL, bilateral eye EOMI ENT: hearing grossly normal, normal pharynx Neck: full range of motion, supple, no meningismus Respiratory: chest non-tender, lungs clear, normal breath sounds Cardiovascular #1: regular rate, rhythm, no murmur Gastrointestinal: normal bowel sounds, non tender, no mass, no organomegaly, no bruit, non-distended Musculoskeletal: back normal, normal range of motion, gait/station normal Psychiatric: mood/affect normal Medical Decision Making Diagnostic Impression: Primary Impression: Pruritus ER Course Patient presents with itching. May be an allergic reaction. She showed no jaundice or icterus to indicate liver disease. Benadryl and steroid given here. Will discharge home. Last Vital Signs Date Time Temp Pulse Resp B/P (MAP) Pulse Ox O2 Delivery O2 Flow Rate FiO2 10/30/19 01:34 98.4 63 16 146/77 97 Room Air Status: improved Disposition: HOME, SELF-CARE Condition: Stable Scripts Prednisone* (PREDNISONE*) 20 Mg Tablet 40 MG ORAL DAILY, #10 TAB Prov: Ryder Cesar MD 10/30/19 Diphenhydramine Hcl* (BENADRYL*) 25 Mg Capsule 50 MG ORAL Q6H PRN for Itching, #30 CAP Prov: Ryder Cesar MD 10/30/19 Referrals: [facility]REFERRING (PCP) Additional Instructions: Follow-up with your doctor in a week. You may need referral to see an senior operations analyst for skin testing and allergy testing. Return if symptoms worsen. Ryder Cesar MD Oct 30, 2019 01:49
[2019-10-30] MEDS ORDERED: DiphenhydrAMINE 50mg/ml Inj IVP ONE (02:00)
--- NOTE | 2019-10-30 02:05 | NUR ---
ED Nurse Note: All medications administered, pt tolerated well no ss of distress noted. Will continue to monitor.
[2019-10-30 02:26] VITALS: BP 146/77
--- NOTE | 2019-10-30 02:27 | NUR ---
ER DISCHARGE NOTE: Patient is cleared to be discharged home per ERMD, pt is aox4, 99% on room air, with stable vital signs. pt was given dc and prescription instructions, pt was able to verbalize understanding, pt id band and iv site removed without complications. pt is able to ambulate with steady gait. pt took all belongings.
== END 2019-10-30 02:26 | disposition home or self-care (01) ==
LOC: EMR 01:15
DX: L29.9 Pruritus, unspecified (principal)
CPT/HCPCS: 96374; 96375; 99284; J1100; J1200